=== PATIENT | female | born 1945 | race Caucasian/White ===

== ENCOUNTER 2019-08-01 01:34 | Day surgery (SDC) | payer MEDICARE, SELFPAY ==
[2019-07-30 13:12] VITALS: BMI 26.8
[2019-08-01 09:18] VITALS: BP 152/103; PULSE 95; RESP 18; TEMP 36.8; O2SAT 96
[2019-08-01] MEDS: LACTATED RINGERS 1,000 ML 150 ML IV CONT (09:23)
[2019-08-01 09:36] LABS: Glucose Point of Care 137 (65-105)
--- NOTE | 2019-08-01 09:54 | WPDANESEPPF ---
Anes - Initial Pre Proc Eval Procedure: Operation Date: 08/01/19 10:00 Proposed Procedures p Screening Colonoscopy - Pierce Aaron MD Date/Time: 08/01/19 09:54 Surgeon: Pierce Aaron MD Pre Op Diagnosis: neoplasm screening Patient Data Age: 74 Gender: F Height: 5 ft 8 in Weight: 83.5 kg Last Vital Signs Temp 98.2 F 08/01/19 09:18 Pulse 95 08/01/19 09:18 Resp 18 08/01/19 09:18 BP 152/103 H 08/01/19 09:18 Pulse Ox 96 08/01/19 09:18 Allergies Allergy/AdvReac Type Severity Reaction Status Date / Time Androgenic Anabolic Steroid Allergy Unknown makes her Verified 08/01/19 09:17 feel strange Corticosteroids Allergy Unknown Hypertensio Verified 08/01/19 09:17 (Glucocorticoids) n lisinopril AdvReac Unknown Cough Verified 08/01/19 09:17 CORTICOSTEROIDS Allergy Mild Hypertensio Uncoded 07/30/19 12:59 n Home Medications Medication Instructions Recorded Confirmed Type metformin 500 mg tablet,extended 500 mg PO DAILY #90 tablet 05/08/19 07/30/19 Rx release 24 hr [employer]GER Thyroid 1 tab-cap PO DAILY 07/30/19 07/30/19 History Nutra Dhea 1 tab-cap PO DAILY 07/30/19 07/30/19 History alprazolam 0.5 mg PO PRN PRN 07/30/19 07/30/19 History atorvastatin 40 mg PO HS 07/30/19 07/30/19 History cholecalciferol (vitamin D3) 5,000 unit PO DAILY 07/30/19 07/30/19 History [Vitamin D3] escitalopram oxalate 10 mg PO DAILY 07/30/19 07/30/19 History estradiol 2 mg PO DAILY 07/30/19 07/30/19 History ibuprofen [Motrin IB] 200 mg PO Q6H PRN 07/30/19 07/30/19 History melatonin 5 mg PO DAILY 07/30/19 07/30/19 History olmesartan 40 mg PO DAILY 07/30/19 08/01/19 History progesterone micronized 200 mg PO HS 07/30/19 07/30/19 History Laboratory Tests 08/01/19 09:31 POC Capillary Glucose 137 mg/dl H mg/dl (65-105) Patient hx anesthesia problems: none Family hx anesthesia problems: none PMFSH Past Medical History Medical History (Updated 08/01/19 @ 09:54 by Ciro Bo MD) Essential (primary) hypertension Hypothyroid Mixed hyperlipidemia Type 2 diabetes mellitus without complications Social History Social History Smoking status: Never smoker Alcohol intake: never Anes - Eval Final PreProcedure Day of Procedure 08/01/19 09:54 Patient weight: obese Heart: regular rate and rhythm Lungs: clear to auscultation Airway: Mallampati scale class II Neurological: alert and oriented Last oral intake: >/= 8 hours ASA classification: III Emergent: no Anesthetic plan: proceed Anesthesia type and monitoring: general GIVS and standard monitoring Informed Consent: The patient's anesthetic plan and its attendant risks and benefits were discussed with the patient/family/POA. Questions were solicited and answers provided to the satisfaction of the patient/family/POA.
--- NOTE | 2019-08-01 10:34 | WPDGICN ---
Assessment and Plan Additional Plan This is a 74-year-old white female patient seen in evaluation at the request of Dr. Fabian. Patient presents for neoplasia screening colonoscopy. Her current weight appetite bowel movements are normal. She denies any blood in her stool she did recently have diarrhea since January of 2018 soft stools usually in the morning this is improved on adding fiber supplementation. She denies any bleeding denies any fever vague abdominal discomfort is improved. Past medical history is significant for diabetes. She is status post cholecystectomy. She has been treated for hypothyroidism. She is allergic to lisinopril and corticosteroids. Current medications include alprazolam, atorvastatin, melatonin, ibuprofen, metformin, thyroid replacement, progesterone, olmesartan. Family history is noncontributory. Physical exam reveals her to be alert. Oriented x3. Vital signs stable. HEENT exam unremarkable. Lungs are clear to auscultation and percussion. Heart is without murmur or extra sounds. Abdominal exam bowel sounds are present soft nontender with no organomegaly. Digital external rectal exam is normal. Impression 1. Neoplasia screening. This is advised because of her age. Colonoscopy will be performed. 2. Chronic diarrhea. Most suspicious for irritable bowel syndrome. Symptoms have improved on fiber supplementation. GI Consult Note Consult date/time: 08/01/19 10:34 HPI: Yandy Mcbride is a 74 year old female [facility] Past Medical History Medical History (Updated 08/01/19 @ 09:54 by Ciro Bo MD) Essential (primary) hypertension Hypothyroid Mixed hyperlipidemia Type 2 diabetes mellitus without complications Social History Social History Smoking status: Never smoker Alcohol intake: never Meds Home Medications and Allergies Home Medications Medication Instructions Recorded Confirmed Type metformin 500 mg tablet,extended 500 mg PO DAILY #90 tablet 05/08/19 07/30/19 Rx release 24 hr ROLL HAND Thyroid 1 tab-cap PO DAILY 07/30/19 07/30/19 History Nutra Dhea 1 tab-cap PO DAILY 07/30/19 07/30/19 History alprazolam 0.5 mg PO PRN PRN 07/30/19 07/30/19 History atorvastatin 40 mg PO HS 07/30/19 07/30/19 History cholecalciferol (vitamin D3) 5,000 unit PO DAILY 07/30/19 07/30/19 History [Vitamin D3] escitalopram oxalate 10 mg PO DAILY 07/30/19 07/30/19 History estradiol 2 mg PO DAILY 07/30/19 07/30/19 History ibuprofen [Motrin IB] 200 mg PO Q6H PRN 07/30/19 07/30/19 History melatonin 5 mg PO DAILY 07/30/19 07/30/19 History olmesartan 40 mg PO DAILY 07/30/19 08/01/19 History progesterone micronized 200 mg PO HS 07/30/19 07/30/19 History Allergies Allergy/AdvReac Type Severity Reaction Status Date / Time Androgenic Anabolic Steroid Allergy Unknown makes her Verified 08/01/19 09:17 feel strange Corticosteroids Allergy Unknown Hypertensio Verified 08/01/19 09:17 (Glucocorticoids) n lisinopril AdvReac Unknown Cough Verified 08/01/19 09:17 CORTICOSTEROIDS Allergy Mild Hypertensio Uncoded 07/30/19 12:59 n Vital Signs Vital Signs - 24 hr 08/01/19 09:18 Temperature 36.8 C Pulse Rate 95 Respiratory Rate 18 Blood Pressure 152/103 H Pulse Oximetry 96
[2019-08-01 10:40] VITALS: BP 98/53; PULSE 79; RESP 18; O2SAT 98
[2019-08-01 10:50] VITALS: BP 95/58; PULSE 77; RESP 18; O2SAT 98
[2019-08-01 11:00] VITALS: BP 121/73; PULSE 78; RESP 18; O2SAT 98
== END 2019-08-01 11:30 | disposition home or self-care (01) ==
PROVIDERS: PCP Family Medicine; Visit Provider Internal Medicine Gastroenterology
PROC: 0DJD8ZZ Inspection of Lower Intestinal Tract, Via Natural or Artificial Opening Endoscopic (ICD-10-PCS; CPT 45378; principal; 2019-08-01 10:00)
DX: Z12.11 Encounter for screening for malignant neoplasm of colon (principal); K57.30 Diverticulosis of large intestine without perforation or abscess without bleeding; K64.8 Other hemorrhoids; R19.7 Diarrhea, unspecified; E11.9 Type 2 diabetes mellitus without complications; E03.9 Hypothyroidism, unspecified; Z79.84 Long term (current) use of oral hypoglycemic drugs; E78.2 Mixed hyperlipidemia; I10 Essential (primary) hypertension; E66.9 Obesity, unspecified; Z68.28 Body mass index [BMI] 28.0-28.9, adult
CPT/HCPCS: G0121; J2704; J7120

== ENCOUNTER 2020-05-05 11:45 | Emergency (ER) | payer MEDICARE, SELFPAY ==
[2020-05-05] VITALS (44 sets, daily range): BP systolic 122–149; BP diastolic 71–80; PULSE 85–121; RESP 9–36; TEMP 37.8; O2SAT 64–98
--- NOTE | ~2020-05-05 | XR_ITS ---
EXAMINATION: XR chest 1V portable DATE: 05/05/2020 12:35 INDICATION: Cough. TECHNIQUE: A single frontal view of the chest was obtained. COMPARISON: CT abdomen 10/21/2005 FINDINGS: There are airspace opacities in all lung zones bilaterally. No pleural effusion or pneumoth orax. The heart size is normal. IMPRESSION: 1. Diffuse lung disease, consistent with pneumonia. Reviewed, dictated and finalized at location A. [employer]IC WORKFORCE REPRESENTATIVE
--- NOTE | 2020-05-05 11:59 | ECG_ITS ---
Measurements Intervals [place] Rate: 108 P: 15 CO: 168 QRS: -45 QRSD: 84 T: 78 QT: 302 QTc: 406 Interpretive Statements SINUS TACHYCARDIA LEFT AXIS DEVIATION VOLTAGE CRITERIA FOR LVH POOR R WAVE PROGRESSION, CONSIDER ANTERIOR INFARCT INFERIOR INFARCT, AGE INDETERMINATE BORDERLINE ST-T WAVE ABNORMALITY- HIGH LATERAL LEADS BASELINE ARTIFACT- II, III ABNORMAL ECG Electronically Signed On 05-05-2020 13:20:43 MARITIME ENGINEER by Ryan Kyle D.O.
--- NOTE | 2020-05-05 12:12 | ED.SOB ---
HPI - SOB/Dyspnea General Chief Complaint: Shortness of Breath/Dyspnea Stated Complaint: low 02 sats, cough, weak Time Seen by Provider: 05/05/20 12:01 History of Present Illness HPI Narrative: Fever and SOB for about the past week. Increasing SOB. Contacted PCP and they were going to send her a COVID test by mail. On arrival here she was found to have room air O2 saturation in the 60s. Continues to be hypoxic on NRB at 15 liters. She is also feeling extremely weak and fatigued. No CP, nausea, vomiting. History limited by medical condition Related Data Home Medications Medication Instructions Recorded Confirmed [employer]PERATION MANAGER Thyroid 1 tab-cap PO DAILY 07/30/19 07/30/19 Nutra Dhea 1 tab-cap PO DAILY 07/30/19 07/30/19 cholecalciferol (vitamin D3) 5,000 unit PO DAILY 07/30/19 07/30/19 [Vitamin D3] estradiol 2 mg PO DAILY 07/30/19 07/30/19 ibuprofen [Motrin IB] 200 mg PO Q6H PRN 07/30/19 07/30/19 melatonin 5 mg PO DAILY 07/30/19 07/30/19 progesterone micronized 200 mg PO HS 07/30/19 07/30/19 Allergies Allergy/AdvReac Type Severity Reaction Status Date / Time Androgenic Anabolic Steroid Allergy Unknown makes her Verified 12/31/19 14:39 feel strange Corticosteroids Allergy Unknown Hypertensio Verified 12/31/19 14:39 (Glucocorticoids) n lisinopril AdvReac Unknown Cough Verified 12/31/19 14:39 CORTICOSTEROIDS Allergy Mild Hypertensio Uncoded 07/30/19 12:59 n Review of Systems Constitutional: Constitutional: Reports chills, Reports fatigue, Reports fever(s) and Reports weakness Cardiovascular: Cardiovascular: Denies chest pain Respiratory: Respiratory: Reports cough and Reports dyspnea Gastrointestinal: Gastrointestinal: Denies abdominal pain and Denies vomiting Genitourinary: Genitourinary: Denies hematuria and Denies dysuria Musculoskeletal: Musculoskeletal: Denies back pain Neurologic: Reports confusion PMFSH Past Medical History Medical History history Anxiety Essential (primary) hypertension Hypothyroid Mixed hyperlipidemia Type 2 diabetes mellitus without complications Surgical History Surgical History [place] teeth extracted Family History Family History Mother Diabetes mellitus Family history of osteoporosis Father Diabetes mellitus, Onset Age: 81 Social History Social History Smoking status: Never smoker Alcohol intake: never Exam Const: General: alert and ill appearing acutely Orientation/consciousness: patient oriented x3 HENMT: Head: normal to inspection Neck: Neck: normal visual inspection Resp: Effort & Inspection: tachypneic Auscultation: rhonchi Cardio: Rate: tachycardic Rhythm: regular rhythm GI: GI Palp: Yes Soft to palpation and No Tenderness to palpation present (GI) Skin: General skin exam: normal color Neuro: General: patient oriented x3 and moves all extremities Speech: normal speech Extrem: General: normal to inspection Course Vital Signs Vital signs: Vital Signs Temperature 37.8 C H 05/05/20 11:53 Pulse Rate 121 H 05/05/20 11:53 Respiratory Rate 32 H 05/05/20 11:53 Blood Pressure 146/80 H 05/05/20 11:53 Pulse Oximetry 64 L 05/05/20 11:53 Temperature 37.8 C H 05/05/20 11:53 Pulse Rate 87 05/05/20 20:00 Respiratory Rate 24 H 05/05/20 20:00 Blood Pressure 149/80 H 05/05/20 14:01 Pulse Oximetry 92 05/05/20 20:00 MDM - SOB/Dyspnea MDM Narrative Medical decision making narrative: She is septic and in severe respiratory failure. Requiring 60 liters by high flow NC to maintain saturation above 90. Attempted to admit to our ICU, but due to pandemic we are already over capacity. ICU bed located at [facility] Transfer accepted. Medical Records Attestation: I re
[2020-05-05 12:20] LABS: Basophils Percent Auto 0.4 % (0.2-1.2); Eosinophils Percent Auto 0.1 % (0-4.4); Immature Granulocyte Absolute 0.47 K/mm3 (0.00-0.031); Immature Granulocyte Percent A 4.6 % (0-0.5); Lymphocytes Absolute Auto 0.37 K/mm3 (0.9-3.2); Lymphocytes Percent Auto 3.6 % (18.3-44.2); Mean Corpuscular HGB Conc 34.1 g/dl (32-36); Mean Corpuscular Hemoglobin 31.7 pg (26-34); Mean Platelet Volume 9.2 fl (7.4-10.4); Monocytes Absolute Auto 0.5 K/mm3 (0.1-0.6); Monocytes Percent Auto 4.5 % (2.6-8.5); Neutrophils Percent Auto 86.8 % (45.5-73.1); Nucleated Red Blood Cells Perc 0.3 % (0.0-0.2); Platelet Count Result 304 k/mm3 (150-375); Red Blood Count 4.41 M/mm3 (4.2-5.4); Red Cell Distribution Width 12.7 % (11.5-14.5); White Blood Count 10.3 K/mm3 (4.5-10.0)
--- NOTE | 2020-05-05 12:23 | PC.NURSE ---
patient brought to ED room 10 with c/o low RA sat at home, cough and fever. see triage notes. patient appears confused at times. pale and diaphoretic. providing most hx. assessments documented. SL inserted. labs drawn. placed on awake overnight monitor. EKG done.
[2020-05-05] MEDS: ALBUTEROL SULFATE (*SP) AEROSOL 1 PUFF 6 PUFF INHALATION (12:31)
[2020-05-05 12:33] LABS: Partial Thromboplastin Time 24.6 SECONDS (22.3-36.8)
[2020-05-05 12:36] LABS: Magnesium 1.5 mg/dL (1.6-2.3)
[2020-05-05 12:37] LABS: Alanine Aminotransferase 25 U/L (4-35); Albumin Level 3.9 g/dL (3.5-5.1); Alkaline Phosphatase 81 U/L (38-126); Anion Gap 12 mmol/L (8-16); Aspartate Amino Transferase 31 U/L (14-36); Bilirubin,Total 0.7 mg/dL (0.2-1.3); Blood Urea Nitrogen 20 mg/dL (7-17); Calcium 9.9 mg/dL (8.4-10.2); Carbon Dioxide 20 mmol/L (22-30); Chloride 103 mmol/L (98-107); Estimated CRCL calculation 72 ml/min; Estimated Glomerular Filt Rate > 60; Glucose 294 mg/dL (65-105); Potassium 3.8 mmol/L (3.4-5.0); Sodium 135 mmol/L (137-145)
[2020-05-05 12:46] LABS: Troponin I 0.013 ng/mL (0.000-0.034)
[2020-05-05 12:49] LABS: D Dimer 8.39 ug/mL (<0.48)
--- NOTE | 2020-05-05 12:54 | PCRCNOTE ---
HIGH FLOW THERAPY STARTED IN ED, PT. ON 60LPM AND 70% FIO2, SPO2 CURRENTLY 93%.
[2020-05-05 13:02] LABS: Alveolar/Arterial O2 Gradient 627.6 mmHg; Base Excess ABG -1.9 mEq/l (+/-2.0); Device NON-REBREATHER MASK; Fractional Inspired Oxygen 100 %; HCO3 ABG 21.7 mEq/l (22.0-26.0); Methemoglobin ABG 0.3 %THb (0-1.5); Oxygen Content ABG 16.9 %vol (16.0-22.0); Oxygen Saturation ABG 87.9 % (95.0-100.0); Oxyhemoglobin 85.5 % THb (90.0-100.0); PCO2 ABG 33.6 mmHg (35.0-45.0); PO2 ABG 51.8 mmHg (80.0-100.0); PO2 FiO2 Ratio Arterial Blood 0.52 %; Reduced Hemoglobin 13.2 %THb (0-5.0); Site Drawn LEFT BRACHIAL; Total Hemoglobin 14.1 g/dL (12.0-18.0); pH ABG 7.428 (7.350-7.450)
[2020-05-05] MEDS: SODIUM CHLORIDE 0.9% IV 1,000 ML 999 ML IV CONT (13:20)
[2020-05-05 13:28] LABS: CRP 18.4 mg/dL (<1.0)
[2020-05-05] MEDS: MAGNESIUM SULF 2 GM/WATER 50ML 2 GM/50 ML BAG IVPB (13:28)
[2020-05-05 13:29] LABS: Lactic Acid Reflex 1.7 mmol/L (0.7-2.1)
--- NOTE | 2020-05-05 14:12 | PC.NURSE ---
1412 - Patient's , David updated on patient condition and plan of care. He can be reached at [phone] and would like to be called with any updates.
--- NOTE | 2020-05-05 16:33 | PC.NURSE ---
Patient refusing transfer to [facility] or any other ICU. Patient states I don't want to go to an ICU . This RN explained that patient is on high amounts of oxygen and needs to be closely monitored in an ICU setting in which nurses can keep a closer watch on her care. Patient verbalizes understanding of need for ICU care but states a room is a room and that she would rather stay in the ER here waiting for an ICU bed than go to another hospital. This RN explained risk of remaining in the ER when ICU care is required for her. Patient refusing transfer at this time. SALOME Boyd informed and speaking with patient. updated.
--- NOTE | 2020-05-05 19:07 | PC.NURSE ---
[facility] called for an update. explained we are waiting for transport.
--- NOTE | 2020-05-05 19:12 | PC.NURSE ---
called [facility] [id number] could not do transport due to O2 situation, called liz at 1848, cannot due to 02 situation, called [facility] again to reinstate trip [id number], but cancelled 1916
--- NOTE | 2020-05-05 19:32 | PC.NURSE ---
called [place] transfer to transfer patien to [facility] icu. eta now
--- NOTE | 2020-05-05 19:47 | PC.NURSE ---
radha has arrived
--- NOTE | 2020-05-05 20:34 | PC.NURSE ---
Per MD Blaine OLEA, patient transported to [facility] on 15 L NRB with high flow NC at 25L by EMS stat. Patient's O2 saturation 92% at time of transport.
[2020-05-06 00:04] LABS: SARS-CoV-2 RNA PCR Positive
== END 2020-05-05 20:36 | disposition short-term general hospital (02) ==
PROVIDERS: Emergency Provider Emergency Medicine; PCP Family Medicine
DX: A41.89 Other specified sepsis (principal); U07.1 COVID-19; J12.89 Other viral pneumonia; J96.01 Acute respiratory failure with hypoxia; I10 Essential (primary) hypertension; E03.9 Hypothyroidism, unspecified; E78.2 Mixed hyperlipidemia; E11.9 Type 2 diabetes mellitus without complications
CPT/HCPCS: 36415; 36600; 71045; 80053; 82375; 82805; 83050; 83605; 83735; 84484; 85025; 85380; 85610; 85730; 86140; 87040; 87635; 93005; 96365; 96366; 96367; 96368; 96375; 99291; A9270; C9803; J0456; J0696; J1100; J3475; J7030; U0003